=== PATIENT | female | born 1950 ===

== ENCOUNTER 2017-03-18 13:17 | Emergency (ER) | payer BC ==
--- NOTE | 2017-03-18 13:27 | Emergency Department Record ---
History of Present Illness - General Stated Complaint: RT WRIST PAIN Time Seen by Provider: 03/18/17 13:25 Source: Patient, Family Mode of Arrival: Ambulatory Limitations: No limitations - History of Present Illness Initial Comments: 66 yo female presents after a fall in her barn. She fell on an out stretched right arm. She has right wrist pain and deformity. No other injury today. Intact skin. She also fell two weeks ago and has been having left rib pain. No head injury. No headaches. No syncope. NO lower extremity pain or injury. No blood thinners. No back pain. She has a past history of right wrist fracture years ago. Complaint: Fall -: Minutes(s) Fall From: Other (In barn [place] 4-5 feet) When Fall Occurred: Just prior to arrival Fall Witnessed: Yes, by family Place Fall Occurred: Home Loss of Consciousness: None Prolonged Down Time?: No Symptoms Prior to Fall: None Location - Extremities: Right: Forearm Quality: Aching Associated Symptoms: Denies - [place] Coma Scale Eye Response: (4) Open spontaneously Motor Response: (6) Obeys commands Verbal Response: (5) Oriented [place] Total: 15 - Related Data Home Medications Medication Instructions Recorded Confirmed Last Taken Fluoxetine HCl [Prozac] 20 mg 03/18/17 03/18/17 Omeprazole [Omeprazole] 40 mg PO 03/18/17 03/18/17 Allergies Allergy/AdvReac Type Severity Reaction Status Date / Time No Known Drug Allergies Allergy Verified 03/18/17 13:39 Review of Systems Constitutional: Denies: Chills, Fever, Malaise, Weakness Eyes: Denies: Eye discharge ENT: Denies: Congestion, Throat pain Respiratory: Denies: Cough Cardiovascular: Denies: Chest pain, Palpitations, Syncope Endocrine: Denies: Fatigue Gastrointestinal: Denies: Abdominal pain, Diarrhea, Nausea, Vomiting Genitourinary: Denies: Dysuria, Urgency Musculoskeletal: Reports: As per HPI, Arthralgia. Denies: Back pain, Myalgia Skin: Denies: Bruising, Change in color, Rash Neurological: Denies: Abnormal gait, Confusion, Headache, Numbness, Tingling, Tremors, Vertigo, Weakness Psychiatric: Denies: Anxiety Hematological/Lymphatic: Denies: Blood Clots, Easy bleeding, Easy bruising, Swollen glands Physical Exam - General General Appearance: Alert, Oriented x3, Cooperative, No acute distress Limitations: No limitations - Head Head exam: Atraumatic, Normocephalic, Normal inspection Head exam detail: negative: Abrasion, Contusion, Hematoma, Laceration - Eye Eye exam: Normal appearance. negative: Conjunctival injection, Periorbital swelling - ENT ENT exam: Normal exam, Mucous membranes moist, Normal orophraynx Ear exam: Normal external inspection Nasal Exam: Normal inspection Mouth exam: Normal external inspection Teeth exam: Normal inspection - Neck Neck exam: Normal inspection, Full ROM. negative: Tenderness - Respiratory Respiratory exam: Normal lung sounds bilaterally. negative: Decreased breath sounds, Respiratory distress, Rhonchi, Stridor, Wheezes - Cardiovascular Cardiovascular Exam: Regular rate, Normal rhythm, Normal heart sounds Peripheral Pulses: 2+: Radial (R) - GI/Abdominal GI/Abdominal exam: Soft - Rectal Rectal exam: Deferred - exam: Deferred - Extremities Extremities exam: Joint swelling, Normal capillary refill, Tenderness. negative : Normal inspection, Calf tenderness, Full ROM, Pedal edema Image of Full Body: 1 - distal radius deformity, tenderness, intact skin and pulses - Back Back exam: Reports: Normal inspection. Denies: CVA tenderness (R), CVA tenderness (L), Paraspinal tenderness, Tenderness, Vertebral tenderness - Neurological Neurological exam: Alert, Normal gait, Oriented X3 - Psychiatric Psychiatric exam: Normal affect, Normal mood - Skin Skin exam: Dry, Intact, Normal color, Warm Course - Reevaluation(s) Reevaluation #1: The wrist XR demonstrates a comminuted dorsally displaced fracture with likely distal ulnar fracture as well. 03/18/17 14:21 The patient refused rib Xr. 03/18/17 14:27 The patient was informed of the XR I recommend ortho consult for displace fraction with reduction The patient's first choice is [facility] given no ortho law firm consultant at [facility] I DHEERAJ Cheney of the ED He accepts the patient for transfer 03/18/17 14:40 Disposition Disposition: Transfer Clinical Impression: Wrist fracture, closed Qualifiers: Encounter type: initial encounter Laterality: right Qualified Code(s): S62.101A - Fracture of unspecified carpal bone, right wrist, initial encounter for closed fracture Disposition: Acute Care Hospital Transfer Transfer To: [facility] Reason For Transfer: Ortho Consult Accepting Physician: Shravan Time Discussed w/Accepting Physician: 14:40 Condition: (2) Stable Forms: Patient Portal Access Time of Disposition: 14:40 Quality - Quality Measures Quality Measures: N/A - Blood Pressure Screening Does Patient Have Any of the Following: No Blood Pressure Classification: Pre-Hypertensive BP Reading Systolic Measurement: 135 Diastolic Measurement: 73 Screening for High Blood Pressure: < Pre-Hypertensive BP, F/U Documented > [ [id number]] Pre-Hypertensive Follow-up Interventions: Referral to alternative/primary care provider.
[2017-03-18] MEDS: MORPHINE SULFATE 5 MG/ML PFS IVP ONE ×3 (13:47→15:07)
[2017-03-18] MEDS: ONDANSETRON HCL IV 4 MG/2 ML VIAL IVP ONE (13:48)
--- NOTE | 2017-03-19 10:29 | RADIOLOGY REPORT ---
EXAM: RIGHT WRIST HISTORY: INJURY. TECHNIQUE: Two views of the right wrist were obtained. Comparison: None. Encounter: Initial. FINDINGS: Osteopenia. There is a comminuted intraarticular fracture deformity of the distal radial metaphysis. Posterior displacement and angulation of the distal radial fracture fragment. There is also mildly displaced ulnar styloid fracture. Associated soft tissue swelling. Degenerative changes of the hand and wrist. IMPRESSION: COMMINUTED, DISPLACED AND ANGULATED DISTAL RADIAL METAPHYSEAL FRACTURE. MILDLY DISPLACED ULNAR STYLOID FRACTURE. JOB NUMBER: [id number] MTDD
== END 2017-03-18 15:15 | disposition short-term general hospital (02) ==
LOC: ER 13:17
DX: S52.611A Displaced fracture of right ulna styloid process, initial encounter for closed fracture (principal); S59.201A Unspecified physeal fracture of lower end of radius, right arm, initial encounter for closed fracture; W17.89XA Other fall from one level to another, initial encounter; Y92.71 Barn as the place of occurrence of the external cause
CPT/HCPCS: 29125; 99285 ×2; 96376; 96374; 96375; 73100; J2405; J2270